=== PATIENT | male | born 1950 | race Caucasian/White ===

== ENCOUNTER → 2018-10-01 19:50 | Outpatient (REF) | payer OTHER, SELFPAY ==
[2018-10-01 20:31] LABS: Alanine Aminotransferase 39 IU/L (21-72); Aspartate Aminotransferase 44 IU/L (17-59); BUN Creatinine Ratio 18.6 (6-22); Blood Urea Nitrogen 13 mg/dL (9-20); Calcium 10.1 mg/dL (8.4-10.2); Carbon Dioxide 26 mmol/L (22-32); Chloride 104 mmol/L (98-107); Cholesterol 208 mg/dL (140-199); Estimated Glomerular Filt Rate > 60.0 mL/min (>60); Glucose 107 mg/dL (80-110); HDL Cholesterol 77 mg/dL (40-60); HEMOLYSIS < 15 (0-50); LDL Cholesterol Calculated 110 mg/dL (<100); Potassium 4.4 mmol/L (3.4-5.1); Sodium 141 mmol/L (137-145); Triglycerides 104 mg/dL (35-150)
== END ==
LOC: LAB 19:50
PROVIDERS: PCP Family Medicine; Visit Provider Family Medicine Geriatric Medicine
DX: I10 Essential (primary) hypertension (principal); R73.01 Impaired fasting glucose; Z13.220 Encounter for screening for lipoid disorders
CPT/HCPCS: 36415; 80048; 80061; 84450; 84460

== ENCOUNTER → 2022-09-21 08:04 | Outpatient (CLI) | payer MEDICARE, SELFPAY ==
--- NOTE | 2022-09-21 19:16 | DI.NM.S_ITS ---
DATE OF SERVICE: 09/21/2022 PROCEDURE: Perfusion study. INDICATION: Paroxysmal atrial fibrillation with likely tachycardia-induced cardiomyopathy, underlying hypertension, moderate aortic stenosis. RADIOPHARMACEUTICAL: 26.5 millicurie technetium-99m Myoview IV was injected at stress and 11.3 millicurie technetium-99m Myoview IV was injected at rest. CARDIAC STRESS: The patient underwent a stress test under the supervision of an attending physician. Initially, patient walked on treadmill using modified Porfirio protocol for a total 9 minutes and achieved maximum heart rate of 110 beats per minute, which was submaximal. He could not keep up with treadmill, hence the test was converted to pharmacological perfusion study. The patient was given IV Lexiscan, as per standard protocol. During exercise, his oxygen saturation dropped from 93 to 87 percent. With Lexiscan, he remained hemodynamically stable. Prior to stress test, resting blood pressure was 150/88. During exercise, blood pressure went up to 170/90 beats per minute. Baseline rhythm was sinus. During exercise, as well as Lexiscan, no obvious ischemic changes or significant arrhythmias. No significant symptoms reported. RAW DATA: There is increased subdiaphragmatic activity. Gut shadow and stomach shadow affecting the inferior border of the heart. GATED STUDY: Resting LV ejection fraction 68 and stress LV ejection fraction 72 percent without any obvious wall motion abnormalities. Resting end-diastolic volume 133 mL. TID ratio 0.79, which is within normal limits. Lung/heart ratio 0.36, which is within normal limits. MYOCARDIAL PERFUSION SCAN: Please note, that there is no stress prone images. Stress supine and resting supine images were compared to each other. There appears to be predominantly fixed, large size, moderate to severely decreased perfusion of inferior wall, as well as basal inferolateral wall, without any reversibility. CONCLUSION: No reversible ischemia. There is a predominantly fixed, large size, moderate to severely decreased perfusion of inferior wall and basal inferolateral wall. There are no stress prone images. On gated study, inferior wall is moving well. On raw images, there is a hot spot, as well as gut shadow and stomach shadow, affecting the inferior border of the heart. Resting left ventricular ejection fraction 68 and stress LV ejection fraction 72 percent. On gated study, no wall motion abnormalities. Hence, most likely we are dealing with tissue attenuation artifact. No TID. Overall, low-risk study. Naveen Bautista - LESLY/ailyn/gabi doc#: [id number]/job#: [id number] dd: 09/21/2022 17:01:00 dt: 09/21/2022 18:49:00 DICTATING MD/COPIES TO: Garrick Melo MD COPIES MNE: TANNER;
== END ==
PROVIDERS: PCP Student in an Organized Health Care Education/Training Program; Referring Provider Nurse Practitioner; Visit Provider Nurse Practitioner
DX: I42.8 Other cardiomyopathies (principal); I48.0 Paroxysmal atrial fibrillation; I10 Essential (primary) hypertension; I35.0 Nonrheumatic aortic (valve) stenosis
CPT/HCPCS: 78452; 93017; A9502; J2785

== ENCOUNTER → 2022-09-22 07:45 | Outpatient (CLI) | payer MEDICARE, SELFPAY ==
--- NOTE | 2022-09-26 08:00 | P.PFT.S_ITS ---
Pulmonary Function Test Referral & Results Date Patient Seen: 09/22/22 Requesting provider: Tripp Durant Results: The spirometry demonstrates an FVC of 3.21 L which is 81% of predicted. The FEV1 was measured at 2.22 L which is 70% of predicted. The FEV1/FVC ratio was 69 which is 94% of predicted. Following the administration of bronchodilator there was no notable change. Lung volumes show an SVC of 3.43 L which is 81% of predicted. The diffusing capacity was measured at 17.55 which is 59% of predicted. No hemoglobin value was provided, so no correction for potential anemia could be made, if appropriate. The maximum voluntary ventilation was reduced Interpretation: This study demonstrates mild obstructive lung disease based on reduction FEV1 although FEV1/FVC ratio is relatively preserved. There is a minimal reduction in lung volumes suggesting the possibility of restrictive lung disease as well There is a more notable reduction diffusing capacity suggesting significant dise ase at the capillary alveolar level as well Clinical correlation suggested
== END ==
PROVIDERS: PCP Family Medicine; Referring Provider Student in an Organized Health Care Education/Training Program; Visit Provider Student in an Organized Health Care Education/Training Program
DX: R06.00 Dyspnea, unspecified (principal); I50.23 Acute on chronic systolic (congestive) heart failure; J98.8 Other specified respiratory disorders; Z87.891 Personal history of nicotine dependence
CPT/HCPCS: 94060; 94726; 94729

== ENCOUNTER → 2023-09-04 09:54 | Outpatient (CLI) | payer MEDICARE, SELFPAY ==
--- NOTE | 2023-09-05 02:40 | DI.NM.S_ITS ---
DATE OF SERVICE: 09/04/2023 PROCEDURE: Pharmacological perfusion study. INDICATION: Shortness of breath, paroxysmal AFib, history of heart failure. RADIOPHARMACEUTICAL: 26.7 millicurie technetium-99m Myoview IV was injected at stress and 11.8 millicurie technetium-99m Myoview IV was injected at rest. CARDIAC STRESS: The patient underwent pharmacological perfusion study under the supervision of an attending staff. Remained hemodynamically stable. Baseline rhythm was sinus with first-degree AV block. During stress, no convincing ischemic changes seen. No significant arrhythmias. No chest pain. The patient experienced shortness of breath. RAW DATA: There is increased subdiaphragmatic activity. Hot spot near the inferior border of the heart with gut shadow, as well as diaphragmatic shadow. Stress left ventricular ejection fraction 75% without any obvious wall motion abnormalities. Resting end-diastolic volume 164 mL. TID ratio 1.09, which is within normal limits. Next, lung heart ratio 0.22, which is within normal limits. MYOCARDIAL PERFUSION SCAN: There is no stress prone images. Resting supine and stress supine images were compared to each other. There is predominantly fixed, large size, moderate to severely decreased perfusion of inferior wall extending into the inferoapex and basal inferolateral wall without any obvious reversible ischemia. There are no prone images. CONCLUSION: 1. No reversible ischemia. 2. Predominantly fixed, large size, moderate to severely decreased perfusion of inferior wall extending into the inferoapex and basal inferolateral wall. There are no stress prone images. On raw data there is increased subdiaphragmatic activity as well as hot spot near the inferior border of the heart. Inferior wall is moving well. Preserved left ventricular function without any obvious wall motion abnormalities. Hence, most likely we are dealing with tissue attenuation artifact. The patient had a perfusion study in September 2022, at that time also had similar perfusion defect. Correlate clinically. Overall, low-risk study. Naveen Bautista - LESLY/ailyn/[place] doc#: [id number]/job#: [id number] dd: 09/04/2023 16:29:00 dt: 09/05/2023 02:16:00 DICTATING MD/COPIES TO: Garrick Melo MD COPIES MNE: TANNER;
== END ==
LOC: NUCM 09:55
PROVIDERS: PCP Student in an Organized Health Care Education/Training Program; Referring Provider Student in an Organized Health Care Education/Training Program; Visit Provider Student in an Organized Health Care Education/Training Program
DX: I50.22 Chronic systolic (congestive) heart failure (principal); R06.09 Other forms of dyspnea; J44.9 Chronic obstructive pulmonary disease, unspecified; I48.0 Paroxysmal atrial fibrillation
CPT/HCPCS: 78452; 93017; A9502; J2785